=== PATIENT | male | born 1990 | race Caucasian/White ===

== ENCOUNTER 2017-10-05 11:20 | Emergency (ER) | payer SELFPAY ==
--- NOTE | 2017-10-05 14:00 | ED ---
Abdominal Pain/Male - HPI Summary HPI Summary: This is Allison cueva, documenting for attending Kayden Levine MD. This patient is a 27 year old M presenting to [facility] with a chief complaint of stabbing RUQ that wraps laterally to the back to right upper abdominal pain wraps to the flank area for the past 3-4 days. Pain is 5/10 in severity upon triage. Pain intermittently shots into epigastria. Pain worsened with eating. Denies changes in n/v/d, PO intake, and urinary or bowel symptoms. Last Bm was this morning. PMHx of Kidney stone, which does not feel similar to current symptoms. - History of Current Complaint Chief Complaint: EDAbdPain Stated Complaint: RT SIDE ABD PAIN Time Seen by Provider: 10/05/17 13:18 Hx Obtained From: Patient Onset/Duration: Lasting Days Timing: Constant, Lasting Days Pain Intensity: 5 Pain Scale Used: 0-10 Numeric Location: Discrete At: RUQ, Epigastric, Flank Character: Sharp Aggravating Factor(s): Food Alleviating Factor(s): Nothing Associated Signs And Symptoms: Negative: Constipation, Blood in Stool, Urinary Symptoms, Decreased Appetite, Nausea, Vomiting - Allergies/Home Medications Allergies/Adverse Reactions: Allergies Allergy/AdvReac Type Severity Reaction Status Date / Time Penicillins Allergy Hives Verified 10/05/17 11:25 PMH/Surg Hx/FS Hx/Imm Hx Cardiovascular History: Reports: Other Cardiovascular Problems/Disorders - heart murmur as a child History: Reports: Hx Kidney Stones - Surgical History Surgery Procedure, Year, and Place: all teeth extracted under anesthesia Infectious Disease History: No Infectious Disease History: Denies: Hx Clostridium Difficile, Hx Hepatitis, Hx Human Immunodeficiency Virus (HIV), Hx of Known/Suspected MRSA, Hx Shingles, Hx Tuberculosis, Traveled Outside the [place] in Last 30 Days - Family History Known Family History: Positive: Cardiac Disease Family History: CAD - GF had AMI at age of 40. Mother with unspecified cardiac dz. - Social History Alcohol Use: None Hx Substance Use: No Substance Use Type: Reports: None Hx Tobacco Use: No Smoking Status (MU): Never Smoked Tobacco Review of Systems Negative: Fever Positive: Abdominal Pain. Negative: Vomiting, Diarrhea, Nausea Positive: no symptoms reported All Other Systems Reviewed And Are Negative: Yes Physical Exam - Summary Physical Exam Summary: Appearance: Well-appearing, Well-nourished Skin: Warm Eyes: Normal ENT: Normal Neck: Supple, nontender Respiratory: Clear to auscultation Cardiovascular: Regular rate, regular rhythm. Normal S1, S2. Abdomen: Soft, moderate right flank tenderness extending into epigastrium Musculoskeletal: Normal, Strength/ROM Intact Neurological: Normal, A&Ox3 Psychiatric: Normal General: No acute distress Triage Information Reviewed: Yes Vital Signs On Initial Exam: Initial Vitals Temp Pulse Resp BP Pulse Ox 97.6 F 67 16 137/91 99 10/05/17 11:22 10/05/17 11:22 10/05/17 11:22 10/05/17 11:22 10/05/17 11:22 Vital Signs Reviewed: Yes Diagnostics - Vital Signs Vital Signs Temp Pulse Resp BP Pulse Ox 10/05/17 11:22 97.6 F 67 16 137/91 99 - Laboratory Result Diagrams: 10/05/17 14:33 10/05/17 14:33 Lab Statement: Any lab studies that have been ordered have been reviewed, and results considered in the medical decision making process. - CT A/P CT CT Interpretation Completed By: Radiologist - NO ACUTE CT ABNORMALITIES. ED Physician has reviewed this report. Abdominal Pain Fem Course/Dx - Course Assessment/Plan: CT Abd and pelvis neg for GB, liver of renal pathologies, UA neg, will d/c home with f/u - Diagnoses Provider Diagnoses: Acute right flank pain Discharge - Sign-Out/Discharge Documenting (check all that apply): Patient Departure - Discharge Plan Condition: Stable Disposition: HOME Patient Education Materials: Flank Pain (ED) Referrals: Enrique Cope MD [Primary Care Provider] - - Billing Disposition and Condition Condition: STABLE Disposition: Home
[2017-10-05 14:42] LABS: ABS Basophils 0 10^3/ul (0-0.2); ABS Eosinophils 0.1 10^3/ul (0-0.6); ABS Lymphocytes 2.3 10^3/ul (1.0-4.8); ABS Monocytes 0.3 10^3/ul (0-0.8); ABS Nucleated RBC 0 10^3/ul; Eosinophil % 0.9 % (0-6); Hematocrit 43 % (42-52); Hemoglobin 14.9 g/dl (14.0-18.0); Lymphocyte % 40.1 % (25-47); Mean Corpuscular HGB Conc 35 g/dl (31-36); Mean Corpuscular Hemoglobin 29 pg (27-31); Mean Corpuscular Volume 83 fL (80-94); Nucleated Red Blood Cells % 0; Platelet Count 232 10^3/ul (150-450); Red Blood Count 5.12 10^6/ul (4.00-5.40); Red Cell Distribution Width 13 % (10.5-15); White Blood Count 5.6 10^3/ul (3.5-10.8)
[2017-10-05 15:00] LABS: EGFR Non-African American 92.6 (>60)
[2017-10-05 15:18] LABS: Urine Appearance Clear; Urine Blood Negative (Negative); Urine Color Yellow; Urine Ketones Negative (Negative); Urine Protein Negative (Negative); Urine Specific Gravity 1.012 (1.010-1.030); Urine Urobilinogen Negative (Negative)
[2017-10-05] MEDS ORDERED: Iohexol 300* (CONTRAST) 10 ML SDV IV ONE (15:46)
--- NOTE | 2017-10-05 16:17 | RAD ---
INDICATION: Right flank pain COMPARISON: None TECHNIQUE: Axial source images were obtained from the hemidiaphragms to the symphysis pubis following administration of intravenous contrast only as requested. Coronal and sagittal reconstructed images were acquired. Lung bases: The lung bases are clear. Liver: The liver is enlarged with findings of hepatic steatosis. There are no masses. There is no ductal dilatation. Gallbladder: There are no calcified gallstones. There is no evidence of wall thickening or pericholecystic fluid. Spleen: The spleen is normal in size. There are no masses. Pancreas: There is no focal pancreatic mass or ductal dilatation. Adrenal glands: There is no evidence of adrenal mass. Kidneys: The kidneys are normal in size and position. There are prompt nephrograms and there is prompt excretion bilaterally. There are no renal parenchymal masses. There is no evidence of nephrolithiasis. A contrast-enhanced CT is less sensitive in evaluating for nephrolithiasis, however. Adenopathy: There is no evidence of adenopathy by size criteria. Fluid collections: There are no free or localized fluid collections. Vessels:There are no significant atherosclerotic changes involving the aorta. There is no focal aneurysm. The iliac vessels are normal in caliber. The IVC appears normal. GI tract: Noncontrast imaging of the bowel shows no abnormalities in a lower GI tracts. The appendix, ileocecal valve, and terminal ileum appear normal. Pelvic organs: The prostate and seminal vesicles appear normal Bladder: There are no bladder masses. Abdominal and pelvic soft tissues: The extraperitoneal abdominal and pelvic soft tissues appear normal.. Osseous structures: There are no acute osseous findings. Other: None IMPRESSION: NO ACUTE CT ABNORMALITIES.
[2017-10-05 17:21] VITALS: BP 149/89
== END 2017-10-05 17:10 | disposition home or self-care (01) ==
LOC: ED 11:20
DX: R10.11 Right upper quadrant pain (principal); R10.13 Epigastric pain; Z87.442 Personal history of urinary calculi; Z88.0 Allergy status to penicillin; Z82.49 Family history of ischemic heart disease and other diseases of the circulatory system
CPT/HCPCS: 36415; 74177; 80053; 81003; 85025; 99282; Q9967

== ENCOUNTER 2018-07-27 09:21 | Emergency (ER) | payer OTHER ==
[2018-07-27 09:31] VITALS: BP 144/92
--- NOTE | 2018-07-27 09:56 | UC ---
Throat Pain/Nasal Ramon HPI - HPI Summary HPI Summary: 28 yo male presents with sinus pain/pressure/congestion for 2 weeks, an intermittently productive cough for 1 week, and left ear pain since last night. He has not been taking anything OTC. He does not smoke. Denies fever, chills, sore throat, SOB. - History of Current Complaint Chief Complaint: UCRespiratory Stated Complaint: COUGH/EAR Time Seen by Provider: 07/27/18 09:47 Hx Obtained From: Patient Onset/Duration: Gradual Onset Severity: Moderate Pain Intensity: 6 Pain Scale Used: 0-10 Numeric - Allergies/Home Medications Allergies/Adverse Reactions: Allergies Allergy/AdvReac Type Severity Reaction Status Date / Time Penicillins Allergy Hives Verified 07/27/18 09:31 PMH/Surg Hx/FS Hx/Imm Hx - Additional Past Medical History Additional PMH: None - Surgical History Surgical History: Yes Surgery Procedure, Year, and Place: all teeth extracted under anesthesia - Family History Known Family History: Positive: Cardiac Disease Family History: CAD - GF had AMI at age of 40. Mother with unspecified cardiac dz. - Social History Alcohol Use: None Substance Use Type: None Smoking Status (MU): Never Smoked Tobacco - Immunization History Most Recent Influenza Vaccination: none Most Recent Tetanus Shot: june 2010 Most Recent Pneumonia Vaccination: none Review of Systems All Other Systems Reviewed And Are Negative: Yes Constitutional: Positive: Negative Skin: Positive: Negative Eyes: Positive: Negative ENT: Positive: Ear Ache, Nasal Discharge, Sinus Congestion, Sinus Pain/ Tenderness Respiratory: Positive: Cough Cardiovascular: Positive: Negative Gastrointestinal: Positive: Negative Neurological: Positive: Negative Psychological: Positive: Negative Physical Exam - Summary Physical Exam Summary: GENERAL: NAD. WDWN. No pain distress. SKIN: No rashes, sores, lesions, or open wounds. HEENT: Head: AT/NC Eyes: EOM intact. Conjunctiva clear without inflammation or discharge. Ears: Hearing grossly normal. TMs intact, no bulging, erythema, or edema. Nose: Nasal mucosa mildly swollen and erythematous with yellow/ clear discharge. TTP maxillary and frontal sinus. Positive post nasal drip Throat: Posterior oropharynx without exudates, erythema, or tonsillar enlargement. Uvula midline. NECK: Supple. Nontender. No lymphadenopathy. CHEST: CTAB. No r/r/w. No accessory muscle use. Breathing comfortably and in no distress. CV: RRR. Without m/r/g. Pulses intact. NEURO: Alert. PSYCH: Age appropriate behavior. Triage Information Reviewed: Yes Vital Signs: Initial Vital Signs Temp 98 F 07/27/18 09:28 Pulse 92 07/27/18 09:28 Resp 18 07/27/18 09:28 BP 144/92 07/27/18 09:28 Pulse Ox 98 07/27/18 09:28 Vital Signs Reviewed: Yes Throat Pain/Nasal Course/Dx - Course Course Of Treatment: Sinusitis - Differential Dx/Diagnosis Provider Diagnosis: Sinusitis Discharge - Sign-Out/Discharge Documenting (check all that apply): Patient Departure All imaging exams completed and their final reports reviewed: No Studies - Discharge Plan Condition: Stable Disposition: HOME Prescriptions: Azithromycin TAB* [Zithromax TAB (Z-NEENA) 250 mg #6 tabs] 2 tab PO .TODAY, THEN 1 DAILY #1 neena guaiFENesin ER TAB [Mucinex*] 600 mg PO BID #14 tab.er Patient Education Materials: Sinusitis (ED) Referrals: Enrique Cope MD [Primary Care Provider] - Additional Instructions: If you develop a fever, shortness of breath, chest pain, new or worsening symptoms - please call your PCP or go to the ED immediately. Your blood pressure was high at todays visit. Please see your primary provider within 4 weeks for recheck and re-evaluation. - Billing Disposition and Condition Condition: STABLE Disposition: Home
== END 2018-07-27 10:02 | disposition home or self-care (01) ==
LOC: UCEAST 09:21
DX: J32.9 Chronic sinusitis, unspecified (principal); H92.02 Otalgia, left ear; Z88.0 Allergy status to penicillin
CPT/HCPCS: 99212; G0463